=== PATIENT | male | born 1930 | race Caucasian/White ===

== ENCOUNTER 2016-09-22 18:00 | Emergency (ER) | payer OTHER, MEDICARE ==
[~2016-09-22] VITALS: Ht 182.9 cm; Wt 94.8 kg
[~2016-09-22 18:00] MED LIST: ASPI-321 OR; ATOR-22 PO; CYAN250T PO; FOLI400T41 PO; FURO40TA3 PO; LOSA50TA6 PO; METO1TAB68 PO; OMEP20CA9 PO; TRAZ1TAB16 PO; ULT/50 PO
[2016-09-22 18:02] VITALS: TEMP 36.3; Ht 182.9 cm; Wt 94.8 kg
[2016-09-22] MEDS ORDERED: ACET325T96 PO (18:45)
[2016-09-22] MEDS ORDERED: XYLG2 TOP (18:45)
[2016-09-22] MEDS ORDERED: DOCU-94 PO (18:45)
[2016-09-22] MEDS ORDERED: TRIA0.5C4 TOP (18:45)
[2016-09-22] MEDS ORDERED: MELA1TAB9 PO (18:52)
[2016-09-22] MEDS ORDERED: FLV1 PO (18:52)
[2016-09-22] MEDS ORDERED: LNX125 PO (18:52)
[2016-09-22] MEDS ORDERED: ASPI81TA28 PO (18:52)
[2016-09-22 18:56] LABS: BASO ABS # 0.08 K/uL (0-0.2); COMPLETE YES; EOS % 1.3 %; HEMATOCRIT 47.9 % (42-52); IG% 0.4 %; LYMPH % 35.4 %; MEAN CELL VOLUME 90.7 fL (80-100); MEAN CORPUSCULAR HEMOGLOBIN 31.6 pg (25-34); MEAN CORPUSCULAR HGB CONC 34.9 g/dl (32-36); MONO % 7.6 %; NEUT % 54.3 %; PLATELET COUNT 135 K/uL (130-400); RED BLOOD COUNT 5.28 M/uL (4.7-6.1); WHITE BLOOD COUNT 7.92 K/uL (4.8-10.8)
--- NOTE | 2016-09-22 19:01 | DIAGNOSTIC IMAGING REPORT ---
SINGLE VIEW CHEST CLINICAL HISTORY: Weakness. Change in mental status. FINDINGS: An AP, portable, upright chest radiograph is compared to study dated 11/30/2010. The examination is degraded by portable technique and patient rotation. A 2-lead cardiac AICD is unchanged in position and partially obscures the left upper chest. The heart is markedly enlarged and there is atherosclerotic calcification of the thoracic aorta. The pulmonary vasculature is noncongested. There is chronic elevation of the left hemidiaphragm with left basilar atelectasis. Chronic interstitial thickening is unchanged. No large pleural effusion or pneumothorax is seen. The skeletal structures are osteopenic. The skeletal structures are osteopenic. Degenerative change is noted throughout the thoracic spine. IMPRESSION: 1. Cardiomegaly and AICD. There is no radiographic evidence of congestive failure. 2. Chronic parenchymal changes as above. There is no airspace consolidation typical for pneumonia and no pleural effusion is identified. Electronically signed by: Cecil Cloud M.D. 09/22/2016 6:59 PM Dictated Date/Time: 09/22/2016 6:57 PM
[2016-09-22 19:07] LABS: INR 1.1 (0.9-1.1); PROTHROMBIN TIME (PATIENT) 11.6 SECONDS (9.0-12.0)
[2016-09-22 19:15] LABS: BUN/CREATININE RATIO 12.4 (10-20); CALCIUM 8.7 mg/dl (8.5-10.1); CREATININE 1.6 mg/dl (0.60-1.40); MAGNESIUM 2.2 mg/dl (1.8-2.4); POTASSIUM 3.9 mmol/L (3.5-5.1)
--- NOTE | 2016-09-22 19:18 | DIAGNOSTIC IMAGING REPORT ---
CT SCAN OF THE BRAIN WITHOUT IV CONTRAST CLINICAL HISTORY: Weakness. Change in mental status. COMPARISON STUDY: No priors. TECHNIQUE: Unenhanced axial CT scan of the brain is performed from the vertex to the skull base. CT DOSE: 601.98 mGy.cm FINDINGS: Brain parenchyma: There are age-related involutional changes noting moderate patchy subcortical and periventricular microangiopathic change. There is no hemorrhage, mass effect, or evidence of acute territorial ischemia by CT criteria. Artis-white matter is preserved. No extra-axial fluid collection is seen. Ventricles, sulci, cisterns: Prominent secondary to involutional change. Intracranial vasculature: There is atherosclerotic calcification of the cavernous carotid and vertebral arteries. Calvarium: Unremarkable. Sinuses and mastoids: Retention cyst and mild mucosal thickening are noted in the maxillary antra. Mild mucosal thickening is also seen in the right ethmoid sinuses. The remaining visualized paranasal sinuses are clear. There is a left mastoid effusion. The right mastoid air cells are well pneumatized. Orbits: The bony orbits are grossly intact. There are bilateral ocular lens implants. IMPRESSION: Senescent changes as above with no hemorrhage, mass effect, or evidence of acute territorial ischemia by CT criteria. Electronically signed by: Cecil Cloud M.D. 09/22/2016 7:16 PM Dictated Date/Time: 09/22/2016 7:13 PM
[2016-09-22 19:25] LABS: CKMB/CK RATIO 2.7 (0-3.0); THYROID STIMULATING HORMONE 1.45 uIu/ml (0.300-4.500)
[2016-09-22 19:48] VITALS: BP 168/115; PULSE 72; O2SAT 97
[2016-09-22 20:00] LABS: URINE APPEARANCE CLEAR (CLEAR); URINE BILIRUBIN NEG (NEG); URINE COLOR YELLOW; URINE EPITHELIAL CELL AUTO 0-5 /lpf (0-5); URINE NITRITE NEG (NEG); URINE SPECIFIC GRAVITY 1.014 (1.000-1.030); UROBILINOGEN NEG (NEG); ZZUR CULT IF INDIC CLEAN CATCH NO
[2016-09-22 20:01] LABS: MANUAL MICROSCOPIC REQUIRED? NO; REVIEW REQ? NO
--- NOTE | 2016-09-22 20:07 | EMERGENCY ROOM VISIT NOTE ---
History Report prepared by José Antonio: Seema Sheffield Under the Supervision of: Dr. Ever Sorenson D.O. First contact with patient: 18:11 Chief Complaint: ALTERED MENTAL STATUS Stated Complaint: DILISIONAL,DISORIENTED History of Present Illness The patient is a 86 year old male who presents to the Emergency Room with his sons who are concerned about the patient's worsening mental state for the past couple months. The patient states that nothing is wrong and nothing has happened. He denies any recent falls. The family reports that the patient has been accusing his daughter, who takes care of the patient, of stealing money and items from the house. The family reports there was nothing stolen from the patient. The patient is regularly getting into arguments with his children over this. The patient went to see his family doctor who referred him to the ED. The patient reports that he lives alone. He states that he has been eating and drinking normally. He is able to name all his children and knows where he is, but states his address incorrectly. His sons reports that the patient saw a neurologist in 2012 because he was having troubles with his short term memory. There were no abnomal findings at this time which the sons attribute to the patient having a good day. They opted not to do an MRI scan to further investigate at the time. They report that these problems have been going on for years, but worsened significantly in June. Source of History: family Onset: June Position: other (global) Timing: worsening Review of Systems See HPI for pertinent positives & negatives. A total of 10 systems reviewed and were otherwise negative. Past Medical & Surgical Medical Problems: (1) Atrial fibrillation (2) Epistaxis (3) Pacemaker Surgical Problems: (1) H/O colonoscopy Family History FH: HTN (hypertension) Heart disease Social History Smoking Status: Never Smoker Marital Status: single Occupation Status: retired Current/Historical Medications Scheduled Aspirin (Aspirin Ec), 81 MG PO BID Atorvastatin (Lipitor), 20 MG PO DAILY Cyanocobalamin (Vitamin B-12 250 Mcg), 125 MCG PO DAILY Digoxin (Digoxin), 0.125 MG PO DAILY Docusate Sodium (Colace), 1 CAP PO BID Folic Acid (Folic Acid), 1 MG PO DAILY Furosemide (Lasix), 20 MG PO DAILY Losartan Potassium (Cozaar), 50 MG PO DAILY Melatonin-Pyridoxine (Melatonin), 3 MG PO HS Metoprolol Succinate (Toprol Xl), 100 MG PO DAILY Metoprolol Succinate (Toprol Xl), 50 MG PO QPM Omeprazole (Prilosec), 20 MG PO DAILY Trazodone Hcl (Desyrel), 50 MG PO HS Scheduled PRN Acetaminophen Tab (Tylenol), 325 MG PO Q4 PRN for Pain or Fever Lidocaine HCl (Lidocaine HCl Jelly), 1 APPLN TOP TID PRN for Pain Tramadol Hcl (Ultram), 50-100 MG PO QAM PRN for Pain Triamcinolone Acet (Triamcinolone Acetonide), 1 APPLN TOP BID PRN for AFFECTED AREA Allergies Coded Allergies: No Known Allergies (Verified , 08/30/02) Physical Exam Vital Signs Date Time Temp Pulse Resp B/P Pulse Ox O2 Delivery O2 Flow Rate FiO2 09/22/16 19:48 72 168/115 97 Room Air 09/22/16 19:18 71 09/22/16 18:02 36.3 77 18 143/91 97 Room Air Physical Exam CONSTITUTIONAL/VITAL SIGNS: Reviewed / noted above. GENERAL: Non-toxic in appearance. INTEGUMENTARY: Warm, dry, and [place]. HEAD: Normocephalic. EYES: without scleral icterus or trauma. ENT/OROPHARYNX: clear and moist. LYMPHADENOPATHY/NECK: Is supple without lymphadenopathy or meningismus. RESPIRATORY: Lungs clear and equal. CARDIOVASCULAR: Regular rate and rhythm. GI/ABDOMEN: Soft and nontender. No organomegaly or pulsatile mass. No rebound or guarding. Normal bowel sounds. EXTREMITIES: Warm and well perfused. BACK: No CVA tenderness. NEUROLOGICAL: Intact without focal deficits. PSYCHIATRIC: normal affect. MUSCULOSKELETAL: Normally developed with good muscle tone. Medical Decision & Procedures ER Provider Diagnostic Interpretation: X ray results and stated below per my interpretation and radiology interpretation. CT results as stated below per my review and radiologist interpretation: SINGLE VIEW CHEST CLINICAL HISTORY: Weakness. Change in mental status. FINDINGS: An AP, portable, upright chest radiograph is compared to study dated 11/30/2010. The examination is degraded by portable technique and patient rotation. A 2-lead cardiac AICD is unchanged in position and partially obscures the left upper chest. The heart is markedly enlarged and there is atherosclerotic calcification of the thoracic aorta. The pulmonary vasculature is noncongested. There is chronic elevation of the left hemidiaphragm with left basilar atelectasis. Chronic interstitial thickening is unchanged. No large pleural effusion or pneumothorax is seen. The skeletal structures are osteopenic. The skeletal structures are osteopenic. Degenerative change is noted throughout the thoracic spine. IMPRESSION: 1. Cardiomegaly and AICD. There is no radiographic evidence of congestive failure. 2. Chronic parenchymal changes as above. There is no airspace consolidation typical for pneumonia and no pleural effusion is identified. Electronically signed by: Cecil Cloud M.D. 09/22/2016 6:[address] SCAN OF THE BRAIN WITHOUT IV CONTRAST CLINICAL HISTORY: Weakness. Change in mental status. COMPARISON STUDY: No priors. TECHNIQUE: Unenhanced axial CT scan of the brain is performed from the vertex to the skull base. CT DOSE: 601.98 mGy.cm FINDINGS: Brain parenchyma: There are age-related involutional changes noting moderate patchy subcortical and periventricular microangiopathic change. There is no hemorrhage, mass effect, or evidence of acute territorial ischemia by CT criteria. Artis-white matter is preserved. No extra-axial fluid collection is seen. Ventricles, sulci, cisterns: Prominent secondary to involutional change. Intracranial vasculature: There is atherosclerotic calcification of the cavernous carotid and vertebral arteries. Calvarium: Unremarkable. Sinuses and mastoids: Retention cyst and mild mucosal thickening are noted in the maxillary antra. Mild mucosal thickening is also seen in the right ethmoid sinuses. The remaining visualized paranasal sinuses are clear. There is a left mastoid effusion. The right mastoid air cells are well pneumatized. Orbits: The bony orbits are grossly intact. There are bilateral ocular lens implants. IMPRESSION: Senescent changes as above with no hemorrhage, mass effect, or evidence of acute territorial ischemia by CT criteria. Electronically signed by: Cecil Cloud M.D. 09/22/2016 7:16 PM Dictated Date/Time: 09/22/2016 7:13 PM Laboratory Results 09/22/16 18:46 Red Blood Count 5.28, Mean Corpuscular Volume 90.7, Mean Corpuscular Hemoglobin 31.6, Mean Corpuscular Hemoglobin Concent 34.9, Mean Platelet Volume 10.0, Neutrophils (%) (Auto) 54.3, Lymphocytes (%) (Auto) 35.4, Monocytes (%) (Auto) 7.6, Eosinophils (%) (Auto) 1.3, Basophils (%) (Auto) 1.0, Neutrophils # (Auto) 4.31, Lymphocytes # (Auto) 2.80, Monocytes # (Auto) 0.60, Eosinophils # (Auto) 0.10, Basophils # (Auto) 0.08 09/22/16 18:46 Test 09/22/16 18:46 09/22/16 19:45 White Blood Count 7.92 K/uL (4.8-10.8) Red Blood Count 5.28 M/uL (4.7-6.1) Hemoglobin 16.7 g/dL (14.0-18.0) Hematocrit 47.9 % (42-52) Mean Corpuscular Volume 90.7 fL (80-100) Mean Corpuscular Hemoglobin 31.6 pg (25-34) Mean Corpuscular Hemoglobin Concent 34.9 g/dl (32-36) Platelet Count 135 K/uL (130-400) Mean Platelet Volume 10.0 fL (7.4-10.4) Neutrophils (%) (Auto) 54.3 % Lymphocytes (%) (Auto) 35.4 % Monocytes (%) (Auto) 7.6 % Eosinophils (%) (Auto) 1.3 % Basophils (%) (Auto) 1.0 % Neutrophils # (Auto) 4.31 K/uL (1.4-6.5) Lymphocytes # (Auto) 2.80 K/uL (1.2-3.4) Monocytes # (Auto) 0.60 K/uL (0.11-0.59) Eosinophils # (Auto) 0.10 K/uL (0-0.5) Basophils # (Auto) 0.08 K/uL (0-0.2) RDW Standard Deviation 43.3 fL (36.4-46.3) RDW Coefficient of Variation 13.2 % (11.5-14.5) Immature Granulocyte % (Auto) 0.4 % Immature Granulocyte # (Auto) 0.03 K/uL (0.00-0.02) Prothrombin Time 11.6 SECONDS (9.0-12.0) Prothromb Time International Ratio 1.1 (0.9-1.1) Activated Partial Thromboplast Time 27.1 SECONDS (21.0-31.0) Partial Thromboplastin Ratio 1.0 Anion Gap 11.0 mmol/L (3-11) Est Creatinine Clear Calc Drug Dose 38.1 ml/min Estimated GFR () 43.9 Estimated GFR (Non- 37.9 BUN/Creatinine Ratio 12.4 (10-20) Calcium Level 8.7 mg/dl (8.5-10.1) Magnesium Level 2.2 mg/dl (1.8-2.4) Total Bilirubin 0.7 mg/dl (0.2-1) Direct Bilirubin 0.2 mg/dl (0-0.2) Aspartate Amino Transf (AST/SGOT) 30 U/L (15-37) Alanine Aminotransferase (ALT/SGPT) 29 U/L (12-78) Alkaline Phosphatase 74 U/L (45-117) Total Creatine Kinase 218 U/L (39-308) Creatine Kinase MB 5.9 ng/ml (0.5-3.6) Creatine Kinase MB Ratio 2.7 (0-3.0) Troponin I 0.102 ng/ml (0-0.045) Total Protein 8.0 gm/dl (6.4-8.2) Albumin 3.8 gm/dl (3.4-5.0) Lipase 208 U/L (73-393) Thyroid Stimulating Hormone (TSH) 1.450 uIu/ml (0.300-4.500) Urine Color YELLOW Urine Appearance CLEAR (CLEAR) Urine pH 5.0 (4.5-7.5) Urine Specific [place] 1.014 (1.000-1.030) Urine Protein NEG (NEG) Urine Glucose (UA) NEG (NEG) Urine Ketones NEG (NEG) Urine Occult Blood NEG (NEG) Urine Nitrite NEG (NEG) Urine Bilirubin NEG (NEG) Urine Urobilinogen NEG (NEG) Urine Leukocyte Esterase NEG (NEG) Urine WBC (Auto) 0 /hpf (0-5) Urine RBC (Auto) 0-4 /hpf (0-4) Urine Hyaline Casts (Auto) 0 /lpf (0-5) Urine Epithelial Cells (Auto) 0-5 /lpf (0-5) Urine Bacteria (Auto) NEG (NEG) Laboratory results as stated above per my review. ECG Indication: altered mental status Rate (beats per minute): 82 Rhythm: other (paced ventricular rhythm) Findings: no ectopy, other (no acute injury) ED Course 1811: Previous medical records were reviewed. The patient was evaluated in room B6. A complete history and physical examination was performed. 2007: I reevaluated the patient. He is resting comfortably. I discussed the results with the patient and the family. I recommended further evaluation of the patient based on the results. The family verbalized understanding. However, the patient does not want to be further evaluated. I explained the risks to the patient and he verbalized complete understanding. He patient will be discharged home. Medical Decision Differential includes acute coronary syndrome, myocardial infarction, CVA, TIA, anemia, infection, pneumonia, UTI, pyelonephritis, poor nutrition, dehydration, electrolyte disturbance,hypoglycemia. This is a 86-year-old male who presents to the ED with a chief complaint of changes in mental status as described above. The patient has had some intermittent confusion and agitation over the past year. It seems to be progressively worsening. The patient was brought in here by family for evaluation of this. The patient does have an appointment with neurology on the . He was referred here by Dr. Jones for some additional testing due to increased symptoms over the past several days. The patient's exam was unremarkable. He has no complaints. CBC is normal. Chemistry panel was unremarkable. The troponin is slightly elevated at 0.0102. EKG shows a paced ventricular rhythm. Creatinine is slightly elevated at 1.6. Chest x-ray did not show acute disease. Urine did not show infection. The patient was told results the test. I recommended admission/observation for further cardiac evaluation due to his elevated troponin. The patient declined this. He stated that if he was going to have a heart attack, he would have it at home. The patient's sons are present. I spoke with him at length about dementia. Discharge instructions have been written. I recommended follow-up with his tree expert as well as the neurologist and PCP. He was to return for any worsening or new concerns. He is felt to be stable for discharge. He is asymptomatic at this time. The patient is awake, alert and oriented to person place and time. He appears to be making decisions that he feels are appropriate and I do not feel the patient can be forced to do things at this point. Impression Primary Impression: Dementia Scribe Attestation The scribe's documentation has been prepared under my direction and personally reviewed by me in its entirety. I confirm that the note above accurately reflects all work, treatment, procedures, and medical decision making performed by me. Departure Information Dispostion Home / Self-Care Referrals Evan Jones M.D.([email or web address]) (PCP) Patient Instructions Dementia Coping Tips Caregiver, Dementia Future Plan Caregiver, My [facility] Additional Instructions Follow-up with your tree expert and your family doctor as well as neurology as scheduled. Return for any concerns or worsening.
== END 2016-09-22 20:15 | disposition home or self-care (01) ==
LOC: C.EDB 18:01
DX: F03.90 Unspecified dementia, unspecified severity, without behavioral disturbance, psychotic disturbance, mood disturbance, and anxiety (principal); I48.91 Unspecified atrial fibrillation; Z95.0 Presence of cardiac pacemaker; Z79.82 Long term (current) use of aspirin; Z79.899 Other long term (current) drug therapy; Z82.49 Family history of ischemic heart disease and other diseases of the circulatory system